=== PATIENT | male | born 1990 | race Caucasian/White ===

== ENCOUNTER 2018-07-03 21:39 | Emergency (ER) | payer BC, OTHER ==
[~2018-07-03] VITALS: Ht 177.8 cm; Wt 77.1 kg
--- OUTSIDE RECORDS SUMMARY | 2018-07-03 21:45 | XMS REPORT ---
Author Author Jackie Swanson [facility] Address [address] [place], [place] [id number] Care Team Providers Care Shop Repairer Name Role Phone Jackie Swanson PCP Allergies and Adverse Reactions Name Reaction Notes No known allergies Plan of Treatment Not available. Medications Not available. Problem List Not available. Vital Signs Date Time BP-Sys(mm[Hg] BP-Serene(mm[Hg]) HR(bpm) RR(rpm) Temp WT HT HC BMI BSA BMI Percentile O2 Sat(%) 07/03/2018 10:34:00 AM 129 mmHg 74 mmHg 72 bpm 18 rpm 98.2 F 170 lbs 70 in 24.3922 kg/m 1.9515 m 98 % Social History Name Description Comments Single doctorate degree Tobacco Never smoker History of Procedures Date Ordered Description Order Status 07/03/2018 12:00 AM THER/PROPH/DIAG INJ SC/IM Reviewed 07/03/2018 12:00 AM Solu-Medrol, Up to 125 Mg [facility]# [id number] Reviewed Results Summary Not available. History Of Immunizations Not available. 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
[2018-07-03] MEDS ORDERED: methylPREDNISolone 125 MG (Solu-MEDROL) VIAL IV STA (22:09)
[2018-07-03] MEDS ORDERED: diphenhydrAMINE 50 MG/ML INJ (BENADRYL) IV STA (22:09)
[2018-07-03] MEDS ORDERED: FAMOTIDINE 20MG/2ML IV (PEPCID) IVP ONE (22:15)
[2018-07-03 22:23] LABS: BASOPHILS % (AUTO) 0 % (0-10); EOSINOPHILS % (AUTO) 0 % (0-10); HEMATOCRIT 46 % (40-54); LYMPHOCYTES # (AUTO) 0.6 X 10^3 (1.0-4.0); LYMPHOCYTES % (AUTO) 12 % (12-44); MEAN CORPUSCULAR HEMOGLOBIN 30 PG (25-34); MEAN CORPUSCULAR HGB CONC 35 G/DL (32-36); MEAN CORPUSCULAR VOLUME 85 FL (80-99); MEAN PLATELET VOLUME 10.3 FL (7.4-10.4); MONOCYTES # (AUTO) 0.1 X 10^3 (0.0-1.0); MONOCYTES % (AUTO) 1 % (0-12); NEUTROPHILS # (AUTO) 4.6 X 10^3 (1.8-7.8); NEUTROPHILS % (AUTO) 87 % (42-75); PLATELET COUNT 211 10^3/uL (130-400); RED CELL DISTRIBUTION WIDTH 13.1 % (10.0-14.5); WHITE BLOOD COUNT 5.3 10^3/uL (4.3-11.0)
--- NOTE | 2018-07-03 22:23 | ED EENT ---
History of Present Illness General Chief Complaint: Oral/Throat Problems Stated Complaint: THROAT SWELLING X 24 HRS Source: patient Exam Limitations: no limitations History of Present Illness Date Seen by Provider: Jul 03, 2018 Time Seen by Provider: 22:08 Initial Comments PT ARRIVES VIA POV C/O SENSATION OF THROAT SWELLING FOR THE LAST 24 HOURS NO PAIN TO THROAT NO FEVER NO URI SYMPTOMS FEELS SLIGHTLY SHORT OF BREATH AND HAVING SOME DIFFICULTY SWALLOWING SINCE YESTERDAY HAS NOT DRANK MUCH SINCE YESTERDAY--STATES HE NORMALLY DRINKS 2 GALLONS OF WATER A DAY, BUT NOT TODAY OR LAST NIGHT NO RASH NO ITCHING NO SWELLING TO FACE, THROAT, LIPS OR TONGUE PT HAS HAD ONCE BEFORE--APPROXIMATELY 2 MONTHS AGO--WENT TO ER AND SYMPTOMS RESOLVED QUICKLY WITH IV MEDICATIONS CAUSE IS UNKNOWN PT DROVE HERE FROM [place] YESTERDAY--IS TRAVELING FOR WORK PT WENT TO [facility] TODAY AND GOT A SHOT OF STEROIDS AND RX FOR PREDNISONE, BUT NOT IMPROVED PT TOOK 2 BENADRYL 2 HOURS AGO, WITHOUT RELIEF NORMALLY DOES NOT TAKE ANY MEDICATIONS AND PMH IS ESSENTIALLY NEGATIVE OTHERWISE Allergies and Home Medications Allergies Coded Allergies: No Allergy Information Available (Unverified , 07/03/18) Home Medications Famotidine 40 Mg Tablet, 40 MG PO DAILY Prescribed by: GLO CHRISTIANSON on 07/03/18 9639 Patient Home Medication List Home Medication List Reviewed: Yes Review of Systems Review of Systems Constitutional: no symptoms reported Eyes: No Symptoms Reported Ears: No Symptoms Reported Nose: no symptoms reported Mouth: no symptoms reported Throat: see HPI Respiratory: see HPI Cardiovascular: no symptoms reported Gastrointestinal: no symptoms reported Musculoskeletal: no symptoms reported Skin: no symptoms reported Neurological: No Symptoms Reported Hematologic/Lymphatic: No Symptoms Reported Immunological/Allergic: no symptoms reported Past Xlnmgpw-Furnzw-Yglysv Hx Patient Social History Alcohol Use: Occasionally Uses Recreational Drug Use: No Smoking Status: Never a Smoker Recent Foreign Travel: No Contact w/Someone Who Travel: No Past Medical History Surgeries: No Respiratory: No Cardiac: No Neurological: No Genitourinary: No Gastrointestinal: No Musculoskeletal: No Endocrine: No HEENT: No Cancer: No Psychosocial: No Integumentary: No Blood Disorders: No Physical Exam Vital Signs Vital Signs - First Documented 07/03/18 22:00 Temp 98.1 Pulse 74 Resp 15 B/P (MAP) 130/78 (95) Pulse Ox 97 O2 Delivery Room Air Height, Weight, BMI Height: '" Weight: lbs. oz. kg; BMI Method: General Appearance: WD/WN, no apparent distress Eyes: bilateral eye normal inspection, bilateral eye PERRL, bilateral eye EOMI Ears: bilateral ear auricle normal, bilateral ear canal normal, bilateral ear TM normal (EXCEPT SCLEROTIC AREA ON LEFT TM) Nose: normal inspection Mouth/Throat: pharynx normal; No tongue swollen, No tonsillar swelling, No trismus, No uvula swelling, No voice changes; other (TONSILS VERY ATROPHIC. WHITE POST NASAL DRAINAGE. 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 Referrals: NO,LOCAL PHYSICIAN (PCP/Family) Primary Care Physician Patient Instructions: Angioedema (DC) Add. Discharge Instructions: INCREASE YOUR FLUID INTAKE--DRINK ENOUGH WATER AND GATORADE SO THAT YOUR ARE URINATING EVERY 2-3 HOURS WHILE AWAKE CONTINUE PREDNISONE PRESCRIBED TAKE CLARITIN 10 MG DAILY OR YOU MAY TAKE BENADRYL 50 MG EVERY 4-6 HOURS FOLLOW UP WITH OF CHOICE THIS WEEK FOR FURTHER CARE RETURN TO ER IF SYMPTOMS RETURN All discharge instructions reviewed with patient and/or family. Voiced understanding. Scripts Famotidine (Pepcid) 40 Mg Tablet 40 MG PO DAILY, #10 TAB Prov: GLO CHRISTIANSON DO 07/03/18 GLO CHRISTIANSON DO Jul 03, 2018 22:23
[2018-07-03 22:36] LABS: BAND NEUTROPHILS 1 %; LYMPHOCYTES % (MANUAL) 6 %; MONOCYTES % (MANUAL) 2 %; NEUTROPHILS % (MANUAL) 89 %
[2018-07-03 22:37] LABS: BASOPHILS % (MANUAL) 0 %; EOSINOPHILS % (MANUAL) 0 %; REACTIVE LYMPHOCYTES 2 %; TOXIC GRANULATION/VACUOLAZATIO 1+
[2018-07-03 22:40] LABS: ALANINE AMINOTRANSFERASE 23 U/L (0-55); ALKALINE PHOSPHATASE 11 U/L (40-136); AMYLASE 110 U/L (25-125); BILIRUBIN,TOTAL 0.9 MG/DL (0.1-1.0); BUN/CREATININE RATIO 10; CALCIUM 10.2 MG/DL (8.5-10.1); CARBON DIOXIDE 21 MMOL/L (21-32); CHLORIDE 103 MMOL/L (98-107); CREATININE SERUM 1.72 MG/DL (0.60-1.30); GFR ESTIMATED 48; GLUCOSE 116 MG/DL (70-105); LIPASE 50 U/L (8-78); MAGNESIUM 2.9 MG/DL (1.8-2.4); POTASSIUM 4.8 MMOL/L (3.6-5.0); SODIUM 138 MMOL/L (135-145)
[2018-07-03] MEDS ORDERED: LACTATED RINGERS 1,000 ML IV ONE (22:44)
[2018-07-03 23:00] LABS: TSH (THYROID ANALYZER) 0.81 UIU/ML (0.35-4.94)
--- NOTE | 2018-07-03 23:07 | NUR ---
PT STATES HE DOES NOT WANT CT SCAN DONE D/T MONEY ISSUES, MEMO RN IN ROOM TO DISCUSS CARE
--- NOTE | 2018-07-03 23:12 | NUR ---
Dr. Lozano notified that pt is refusing CT scan due to financial reasons.
[2018-07-03] MEDS ORDERED: FAMO40TA72 PO (23:38)
[2018-07-04 00:19] VITALS: BP 121/74
== END 2018-07-04 00:19 | disposition home or self-care (01) ==
LOC: ER 21:41
DX: R22.1 Localized swelling, mass and lump, neck (principal); E86.0 Dehydration
CPT/HCPCS: 36415; 80053; 82150; 83690; 83735; 84443; 85007; 85027; 93041; 96374; 96375